=== PATIENT | male | born 1955 | race Caucasian/White ===

== ENCOUNTER → 2023-10-05 06:18 | Day surgery (SDC) | payer MEDICARE, SELFPAY | LOC: GI 06:18 | PROVIDERS: ATTENDING PHYSICIAN Internal Medicine Gastroenterology | DX: Z12.11 Encounter for screening for malignant neoplasm of colon (principal); K64.8 Other hemorrhoids; R12 Heartburn; K22.2 Esophageal obstruction; K31.89 Other diseases of stomach and duodenum; Z98.0 Intestinal bypass and anastomosis status; Z86.010 Personal history of colon polyps | CPT/HCPCS: 43239; G0105; 88305; 88342 ==

== ENCOUNTER 2024-08-27 12:47 | Emergency (ER) | payer MEDICARE, SELFPAY ==
[2024-08-27 12:51] VITALS: BP 169/89
[2024-08-27 13:12] LABS: % Basophils 0.8 % (0-2); % Eosinophils 3.1 % (0-6); % Immature Granulocytes 0.4 % (0-0.5); % Lymphocytes 17.6 % (20.5-51.1); % Monocytes 13.5 % (1.7-9.3); % Neutrophils 64.6 % (42.2-75.2); Absolute Eosinophils 0.2 10^3/uL (0-0.7); Absolute Lymphocytes 0.9 10^3/uL (1.2-3.4); Absolute Monocytes 0.7 10^3/uL (0.1-0.6); Absolute Neutrophils 3.3 10^3/uL (1.4-6.5); Hematocrit 44.4 % (39.0-52.0); Hemoglobin 15.2 g/dL (13.0-18.0); Mean Corp Hgb Conc. 34.2 g/dL (33.0-37.0); Mean Corpuscular Hgb 32.6 pg (27.0-31.0); Mean Corpuscular Volume 95.3 fL (80.0-94.0); Mean Platelet Volume 10.5 fL (7.4-10.4); Nucleated Red Blood Cells % 0 % (-); Platelet Count 196 10^3/uL (130-400); Red Blood Cell Count 4.66 10^6/uL (4.70-6.10); Red Cell Dist. Width 12.7 % (11.5-14.5); White Blood Cell Count 5.1 10^3/uL (4.8-10.8)
[2024-08-27 13:31] LABS: ALT (SGPT) 37 U/L (0-50); AST (SGOT) 35 U/L (17-59); Albumin 4.9 g/dl (3.5-5.0); Alkaline Phosphatase 58 U/L (38-126); Blood Urea Nitrogen 21 mg/dl (9-20); Calcium 9.4 mg/dl (8.4-10.2); Carbon Dioxide 24 mmol/L (22-30); Chloride 105 mmol/L (98-107); Glucose 92 mg/dl (70-99); Potassium 4.7 mmol/L (3.5-5.1); Sodium 138 mmol/L (135-145); Total Protein 7.2 g/dl (6.3-8.2); eGFR > 60.00
[2024-08-27 13:42] LABS: Troponin I < 0.012 ng/ml
[2024-08-27 15:08] VITALS: BP 115/73; BP 129/65; BP 142/71; PULSE 72; PULSE 84; PULSE 88
--- NOTE | 2024-08-27 15:11 | ED.GENMED ---
History of Present Illness
General
Chief Complaint: Dizziness
Source: patient and spouse ( at bedside)
Exam Limitations: none
Time Seen by Provider: 08/27/24 14:56
Nursing documentation reviewed up to this point in time: agreed with
History of Present Illness
History of Present Illness:
Patient is a 69-year-old male with history CAD, prostate cancer, celiac disease presenting to the emergency department for evaluation of episodes of lightheadedness occurring this morning. Patient states that he had multiple episodes this morning
of feeling lightheaded, as if he was going to pass out. These all occurred after he changed positions from sitting to standing. No syncopal episodes. Patient denies any true dizziness or spinning sensation. Patient denies any associated chest
pain, shortness of breath, headache, visual changes, diaphoresis. No nausea or vomiting.
Patient does wonder if he is dehydrated. He has history of celiac disease with intermittent diarrhea which is his baseline. Patient denies any recent fevers, chills, or abdominal pain.
Past History
Past History
ED Past Medical History: Cancer (prostate), Hypercholesterolemia and Other (celiac)
Social History
Tobacco: Non-smoker
Alcohol: None
Drug: None
Personal:
Living: with family
Review of Systems
Review of Systems
Allergies reviewed?: Yes
All Other Systems: ROS reviewed and negative except as documented in HPI and ROS
Phy Exam
Physical Exam
Physical Exam:
Vitals: Hypertensive, otherwise vital signs stable. Afebrile
General: Patient is well appearing, no acute distress. Nontoxic appearing
Skin: Warm and dry, no rashes or lesions
Head: Normocephalic, atraumatic
Eyes: Sclera nonicteric. EOMs intact. No nystagmus.
Throat: Protecting airway
Neck: Normal ROM, no cervical spine tenderness, no meningismus
Cardiac: Regular rate and rhythm, no murmurs. No JVD
Pulm: Normal respiratory effort, no wheezes, rales, rhonchi heard on exam.
Abdomen: Abdomen soft. No abdominal tenderness.
Extremities: No evidence of cyanosis or edema. Palpable and equal distal pulses in bilateral upper and lower extremities.
Neuro: AAOx3. Grossly intact. Speech fluid. Sensation fully intact.
Psychiatric: Normal affect.
Course
Orders/Labs/Results
Orders:
Orders
08/27/24 12:54
Electrocardiogram (*1) Urgent
Reason for Study: Other
Other Reason for Exam: near syncope
EKG- Treatment ONCE
08/27/24 13:02
Complete Blood Count/With Diff Urgent
Comprehensive Metabolic Panel Urgent
Troponin I Urgent
08/27/24 15:08
Orthostatic VS- Treatment ONCE
0.9% Sodium Chloride 1000 ml [Nss] 1,000 ml IV BOLUS
08/27/24 15:26
COVID-19 Antigen Urgent
Source: Nasal Swab
Influenza A+B Rapid Molecular Urgent
HEIDI Source: Nasal Swab
Specimen Description:
Abnormal Lab Results
08/27/24
13:02
RBC 4.66 L 10^6/uL
(4.70-6.10)
MCV 95.3 H fL
(80.0-94.0)
MCH 32.6 H pg
(27.0-31.0)
MPV 10.5 H fL
(7.4-10.4)
Absolute Lymphs (auto) 0.9 L 10^3/uL
(1.2-3.4)
Absolute Monos (auto) 0.7 H 10^3/uL
(0.1-0.6)
Lymphocytes % 17.6 L %
(20.5-51.1)
Monocytes % 13.5 H %
(1.7-9.3)
BUN 21 H mg/dl
(9-20)
08/27/24 13:02
08/27/24 13:02
Vital Signs
Initial and Last Documented VS:
Initial Vital Signs
Temp Pulse Resp BP Pulse Ox
98.3 F 70 16 169/89 98
08/27/24 12:51 08/27/24 12:51 08/27/24 12:51 08/27/24 12:51 08/27/24 12:51
Last Documented Vital Signs
Temp Pulse Resp BP Pulse Ox
98.3 F 73 16 169/89 97
08/27/24 12:51 08/27/24 16:00 08/27/24 16:00 08/27/24 12:51 08/27/24 16:00
MDM/Problems Addressed
Differential Diagnosis Includes:
Tell him to: Viral illness, acute dehydration, orthostatic hypotension, vasovagal response, etc.
MDM/Problems Addressed:
69-year-old male presenting with orthostatic lightheadedness this morning. No syncopal episodes. No associated chest pain, shortness of breath. No fevers or URI symptoms. Patient hypertensive, otherwise stable vital signs. He is afebrile. Physical
exam as above. Basic labs initiated in triage without any clinically significant abnormalities. Troponin undetectable. EKG shows normal sinus rhythm without acute ischemic changes or arrhythmia. Patient overall very well appearing. Will obtain
orthostatic vitals signs, viral swabs, and give IVF. Ultimately suspect dehydration vs orthostatic hypotension. Do not suspect ACS. Low suspicion for cardiac etiology. Do not suspect central cause.
Update: Patient found to be orthostatic. Also found to be positive for influenza B. Patient receiving IVF and then will repeat orthostatic VS. Patient remains afebrile with stable vital signs.
Update: Normal orthostatic vital signs following liter of fluid. Patient ambulating throughout room and remains asymptomatic with steady gait. Suspect symptoms secondary to orthostatic hypotension. Influenza may be contributing factor. Patient is
nontoxic with stable vital signs. While somewhat unknown onset of symptoms it is possible that he is very early in influienza course. Did discuss tamiflu and sent to pharmacy. Patient otherwise stable for discharge. Recommended supportive care, PO
fluids, and PCP f/u. Patient stable for discharge.
Chronic conditions affecting care:
N/A
Acute Exacerbation and/or Progression of Chronic Illness:
N/A
*Pulse Oximetry
Patient hypoxic: no
*EKG
Interpreted by ED Provider?: Yes
EKG Intrepretation Date: 08/27/24
Interpretation: normal
Comparison EKG: no comparison EKG present
Heart Rate: 62
Rate: normal
Rhythm: sinus
[place]ster: normal axis
Interval: normal QT interval
QRS Pattern: normal QRS
Ischemia: no ischemia
*Writing Tutor Interpretation
Rate: normal
Interpretation: normal
Heart Rate: 70
Rhythm: sinus
*Critical Care Note
Total Time (30-74mins, 75-104mins- exclusive of procedures): Not Applicable
ED Attending Note
-
Portions of this chart may have been created with voice recognition software.� Occasional wrong word or��sound alike� substitutions may have occurred due to the inherent limitations of voice recognition software.
Discharge Plan
Departure
Patient Disposition: Home (Routine Discharge)
Date of Disposition: 08/27/24
Time of Disposition: 17:17
Patient with high blood pressure during this ER visit?: Yes
Condition: Good
Covid-19: Not Applicable
Discharge Problem:
Influenza B, Orthostatic lightheadedness
Instructions: Near Fainting (DC), Flu in adults - ED discharge instructions, BLOOD PRESSURE
Prescriptions:
New
oseltamivir 75 mg capsule
75 mg PO BID 5 Days Qty: 10 0RF
Referrals:
Leticia Sutherland, [Family Provider] - Follow up in 5-7 days
Activity Restrictions/Additional Instructions:
Return to the emergency department with any high fevers, chest pain, shortness of breath/difficulty breathing, persistent lightheadedness/fainting, worsening current symptoms, or any other concerns
-As discussed�you were found to be positive for influenza B while in the emergency department today. You did receive a liter of fluids.
-A prescription for Tamiflu has been sent to your pharmacy which you should start as soon as possible if you decide to take it.
-It is very important you stay well-hydrated. Drink plenty of water. You can take Tylenol as needed for fever/body aches
-Follow-up with your primary care for further evaluation/management as needed
Monitor your symptoms closely return to the emergency department with any acute worsening/new symptoms or any other concerns
Interventions
Interventions:
*Risk Screen - Suicide Last Done: 08/27/24 12:51
*General Assessment Last Done: 08/27/24 15:06
*Neglect/Abuse Screening Last Done: 08/27/24 12:51
ED- Fall Risk Assessment Last Done: 08/27/24 15:10
*ED COVID-19 Vaccine History Last Done: 08/27/24 15:25
*Nursing Disposition Last Done: 08/27/24 17:36
ED- Neurological Assessment Last Done: 08/27/24 15:10
ED Swallowing Screen Last Done: 08/27/24 15:10
Discharge Date and Time
Discharge Date/Time: 08/27/24 17:37
Print Language: GUYANESE
[2024-08-27 15:24] VITALS: BMI 23.3
[2024-08-27] MEDS: NSS 1000 IV (15:24)
[2024-08-27 15:55] LABS: COVID-19 Antigen Negative (Negative)
[2024-08-27 16:56] VITALS: BP 142/88; BP 143/83; BP 146/78; PULSE 67; PULSE 72; PULSE 73
== END 2024-08-27 17:37 | disposition home or self-care (01) ==
LOC: EMR 12:47
PROVIDERS: Physician Assistant; Student in an Organized Health Care Education/Training Program; EMERGENCY PHYSICIAN Emergency Medicine; FAMILY PHYSICIAN Family Medicine
DX: J10.1 Influenza due to other identified influenza virus with other respiratory manifestations (principal); R42 Dizziness and giddiness; R03.0 Elevated blood-pressure reading, without diagnosis of hypertension; Z11.52 Encounter for screening for COVID-19; I25.10 Atherosclerotic heart disease of native coronary artery without angina pectoris
CPT/HCPCS: 99284; 96360; 96361; 80053; 84484; 85025; 87502; 87811; 93005

== ENCOUNTER → 2024-11-07 08:35 | Outpatient (REF) | payer MEDICARE, SELFPAY ==
[2024-11-07 10:27] LABS: Hematocrit 43.6 % (39.0-52.0); Hemoglobin 14.8 g/dL (13.0-18.0); Mean Corp Hgb Conc. 33.9 g/dL (33.0-37.0); Mean Corpuscular Hgb 32.3 pg (27.0-31.0); Mean Corpuscular Volume 95.2 fL (80.0-94.0); Mean Platelet Volume 11.2 fL (7.4-10.4); Platelet Count 192 10^3/uL (130-400); Red Blood Cell Count 4.58 10^6/uL (4.70-6.10); Red Cell Dist. Width 12.7 % (11.5-14.5); White Blood Cell Count 4.3 10^3/uL (4.8-10.8)
[2024-11-07 11:11] LABS: Blood Urea Nitrogen 21 mg/dl (9-20); Calcium 9.2 mg/dl (8.4-10.2); Carbon Dioxide 26 mmol/L (22-30); Chloride 104 mmol/L (98-107); Glucose 89 mg/dl (70-99); Sodium 141 mmol/L (135-145); eGFR > 60.00
== END ==
LOC: SDSPAT 08:35
PROVIDERS: ATTENDING PHYSICIAN Surgery; FAMILY PHYSICIAN Family Medicine
DX: Z01.818 Encounter for other preprocedural examination (principal)
CPT/HCPCS: 36415; 80048; 85027; 93005

== ENCOUNTER 2024-11-21 06:22 | Day surgery (SDC) | payer MEDICARE, SELFPAY ==
[2024-11-07 14:12] VITALS: BMI 23.0
[2024-11-21] VITALS (8 sets, daily range): BP systolic 109–136; BP diastolic 38–85; BMI 23.0
[2024-11-21] MEDS: TYLENOL 1000 MG PO (08:30)
[2024-11-21] MEDS: NORMOSOL-R/PLASMALYTE-A 1000 IV (08:30)
== END 2024-11-21 13:10 | disposition home or self-care (01) ==
LOC: SDS 06:22
PROVIDERS: ATTENDING PHYSICIAN Surgery; FAMILY PHYSICIAN Family Medicine
DX: K40.90 Unilateral inguinal hernia, without obstruction or gangrene, not specified as recurrent (principal); K66.0 Peritoneal adhesions (postprocedural) (postinfection)
CPT/HCPCS: 49650; C1781

== ENCOUNTER → 2025-06-03 11:47 | Outpatient (REF) | payer MEDICARE, SELFPAY | LOC: MRI 3T 11:47 | PROVIDERS: FAMILY PHYSICIAN Family Medicine | DX: R97.20 Elevated prostate specific antigen [PSA] (principal) | CPT/HCPCS: 72197; A9575 ==

== ENCOUNTER 2025-07-08 12:33 | Emergency (ER) | payer MEDICARE, SELFPAY ==
[2025-07-08 13:24] LABS: Hematocrit 42.6 % (39.0-52.0); Hemoglobin 14.6 g/dL (13.0-18.0); Mean Corp Hgb Conc. 34.3 g/dL (33.0-37.0); Mean Corpuscular Volume 94.9 fL (80.0-94.0); Nucleated Red Blood Cells % 0 % (-); Platelet Count 196 10^3/uL (130-400); Red Cell Dist. Width 12.6 % (11.5-14.5)
[2025-07-08 13:57] LABS: ALT (SGPT) 33 U/L (0-50); AST (SGOT) 33 U/L (17-59); Albumin 4.6 g/dl (3.5-5.0); Alkaline Phosphatase 60 U/L (38-126); Blood Urea Nitrogen 16 mg/dl (9-20); Calcium 9.3 mg/dl (8.4-10.2); Carbon Dioxide 26 mmol/L (22-30); Chloride 104 mmol/L (98-107); Glucose 88 mg/dl (70-99); Potassium 4.5 mmol/L (3.5-5.1); Sodium 137 mmol/L (135-145); Total Protein 7.2 g/dl (6.3-8.2); eGFR > 60.00
[2025-07-08 14:04] LABS: Troponin I < 0.012 ng/ml
[2025-07-08 15:36] VITALS: BP 159/77
[2025-07-08 15:38] VITALS: BMI 24.8
--- NOTE | 2025-07-08 15:52 | ED.GENMED ---
History of Present Illness
General
Chief Complaint: Chest Pain
Source: patient
Time Seen by Provider: 07/08/25 15:35
History of Present Illness
History of Present Illness:
70-year-old male with past medical history of CAD, DVT (not currently on anticoagulation) and currently in the workup for prostate cancer presenting to the emergency department for evaluation of off-and-on chest discomfort that has been ongoing for
about 2 weeks, no exacerbating or alleviating factors, associated with increased belching, described to be more of a dull aching sensation and does not seem to be worsened with any exercise. Patient does note that the symptoms do seem to be
associated with some increased belching but that food is not making any of the symptoms worse. Patient had similar event a few years ago but no specific etiology for the symptoms were found. He does follow with Dr. Brown for cardiology. Patient
denies any recent travel, recent illnesses, lower extremity pain or edema or any other concerns. Family history is noted for brother having a surgery to repair a valve last year. Social history noncontributory.
Past History
Past History
ED Past Medical History: Cancer (prostate), Hypercholesterolemia, Other (DVT) and Other (celiac)
ED Past Surgical History: Bowel resection and Orthopedic
Social History
Tobacco: Non-smoker
Alcohol: None
Drug: None
Personal:
Living: with family
Review of Systems
Review of Systems
All Other Systems: ROS reviewed and negative except as documented in HPI and ROS
Phy Exam
Physical Exam
Physical Exam:
GENERAL: Alert , in no apparent distress
HEAD: Normocephalic atraumatic
EYE: conjunctiva clear
NECK: Supple
ENT: o/p clr, mmm.
CARDIAC: Regular rate and rhythm
LUNGS: Clear breath sounds bilaterally, no acute respiratory distress, no wheezes/rales/rhonchi
ABDOMEN: soft, non-tender
NEUROLOGICAL: Alert and oriented
SKIN: Warm and dry, skin intact.
MUSCULOSKELETAL: well perfused. no edema or pain
PSYCH: Normal and appropriate interaction.
Scores
Heart Failure Risk
Heart Failure Risk Score: Not Applicable
Heart Score for Chest Pain Patients
STEMI patient?: No
History: Slightly or Non-Suspicious
ECG: Normal
Age: >/= 65 years
Risk Factors: >/= 3 Risk Factors or History of CAD
Troponin: </= Normal Limit
Heart Score for Chest Pain Patients: 4
Heart Score Risk: 20.3% MACE over next 6 weeks
Withdrawal Assessment of Alcohol
Withdrawal Assessment Completed?: Not applicable
Course
Orders/Labs/Results
Orders:
Orders
07/08/25
Electrocardiogram (*1) Stat
Comment: DONE EMR
07/08/25 12:34
EKG [Electrocardiogram (*1)] Urgent
Reason for Study: Chest Pain
EKG- Treatment ONCE
07/08/25 12:54
Complete Blood Count/With Diff Urgent
Comprehensive Metabolic Panel Urgent
Troponin I Urgent
07/08/25 15:37
CR Chest - 2 Views Urgent
Comment:
Reason For Exam: chest pain
07/08/25 16:00
D-Dimer Urgent
Troponin I Urgent
Abnormal Lab Results
07/08/25
12:54
RBC 4.49 L 10^6/uL
(4.70-6.10)
MCV 94.9 H fL
(80.0-94.0)
MCH 32.5 H pg
(27.0-31.0)
MPV 10.5 H fL
(7.4-10.4)
Absolute Lymphs (auto) 0.8 L 10^3/uL
(1.2-3.4)
Lymphocytes % 13.2 L %
(20.5-51.1)
Monocytes % 10.1 H %
(1.7-9.3)
07/08/25 12:54
07/08/25 12:54
Vital Signs
Initial and Last Documented VS:
Initial Vital Signs
Temp Pulse Resp Pulse Ox
97.9 F 77 19 98
07/08/25 12:43 07/08/25 12:43 07/08/25 12:43 07/08/25 12:43
Last Documented Vital Signs
Temp Pulse Resp BP Pulse Ox
97.9 F 66 19 129/75 95
07/08/25 12:43 07/08/25 17:30 07/08/25 17:30 07/08/25 17:00 07/08/25 17:30
MDM/Problems Addressed
Differential Diagnosis Includes:
Atypical ACS
PE
Pericarditis/Myocarditis
PTX
GERD/Gastritis
PUD
Cholecystitis
MDM/Problems Addressed:
70-year-old male presenting to the ER for evaluation of chest discomfort that has been ongoing for about 2 weeks. No exacerbating or alleviating factors. No recent cardiac testing through [facility] to evaluate. Patient hemodynamically stable here.
He does have risk factors for PE including cancer history and previous DVT so will obtain D-dimer although my suspicion for PE is quite low. Patient does have a reported history of CAD but no records to see of this. EKG is nonischemic and first
troponin is negative. I did add on a second troponin although would expect that with 2 weeks of symptoms we would have already seen some abnormality on patient's EKG or troponin. Anticipate discharge home with chest pain hotline follow-up
*Radiology
Radiology exam reviewed: preliminary read by ED provider (Normal chest x-ray)
*Pulse Oximetry
SaO2: 98
Oxygen Mode of Delivery: Room air
Patient hypoxic: no
*EKG
Heart Rate: 65
Rate: normal
Rhythm: sinus
Ischemia: no ischemia
*Grocery Caddy Interpretation
Rate: normal
Heart Rate: 67
Rhythm: sinus
*Critical Care Note
Total Time (30-74mins, 75-104mins- exclusive of procedures): Not Applicable
Patient Management
Escalation/DeEscalation of care consider admission/obs:
Patient's repeat troponin and D-dimer are within normal limits. Chest x-ray is unremarkable. He remains symptom-free. Chest pain hotline was notified. Patient stable for discharge home, aware of return precautions.
ED Attending Note
-
Portions of this chart may have been created with voice recognition software.� Occasional wrong word or��sound alike� substitutions may have occurred due to the inherent limitations of voice recognition software.
Discharge Plan
Departure
Patient Disposition: Home (Routine Discharge)
Date of Disposition: 07/08/25
Time of Disposition: 17:32
Patient with high blood pressure during this ER visit?: Yes
Discharge Problem:
Chest pain
Instructions: Chest Pain CBC Follow Up
Prescriptions:
No Action
hydroxychloroquine 200 mg tablet
300 mg PO DAILY
rosuvastatin 20 mg tablet
20 mg PO DAILY
Simponi ARIA 12.5 mg/mL Solution
12.5 mg IV [id number]
aspirin 81 mg Capsule
81 mg PO DAILY
sulfasalazine 500 mg tablet
500 mg PO BID
acetaminophen [acetaminophen] 325 mg tablet
650 mg PO Q4HPRN PRN (Reason: mild pain) Qty: 1 0RF
oxycodone 5 mg tablet
5 mg PO Q4HPRN PRN (Reason: breakthrough/severe pain) Qty: 7 0RF
Referrals:
Letiica Sutherland DO [Family Provider, Family Practice]
Interventions
Interventions:
*General Assessment Last Done: 07/08/25 12:44
*Neglect/Abuse Screening Last Done: 07/08/25 12:44
*ED COVID-19 Vaccine History Last Done: 07/08/25 12:44
*ED Influenza Vaccine History Last Done: 07/08/25 12:44
[facility] Risk Assessment Tool Last Done: 07/08/25 15:38
*Risk Screen - Suicide (C-SSRS) Last Done: 07/08/25 12:44
*Nursing Disposition Last Done: 07/08/25 18:00
ED- Cardiac Assessment Last Done: 07/08/25 15:39
Discharge Date and Time
Discharge Date/Time: 07/08/25 18:00
Print Language: SINHALA
[2025-07-08 16:00] VITALS: BP 99/87
[2025-07-08 16:32] LABS: D-Dimer < 0.27 ug/mlFEU (0.00-0.50)
[2025-07-08 16:34] LABS: Troponin I < 0.012 ng/ml
[2025-07-08 17:00] VITALS: BP 129/75
== END 2025-07-08 18:00 | disposition home or self-care (01) ==
LOC: EMR 12:33
PROVIDERS: Emergency Medicine; Physician Assistant Medical; EMERGENCY PHYSICIAN Emergency Medicine; FAMILY PHYSICIAN Family Medicine
DX: R07.89 Other chest pain (principal); E78.00 Pure hypercholesterolemia, unspecified; I25.10 Atherosclerotic heart disease of native coronary artery without angina pectoris; C61 Malignant neoplasm of prostate; Z86.718 Personal history of other venous thrombosis and embolism
CPT/HCPCS: 99285; 71046; 80053; 84484; 85025; 85379; 93005